=== PATIENT | female | born 1970 | race Hispanic/Latino ===

== ENCOUNTER 2020-09-21 15:58 | Emergency (ER) | payer SELFPAY ==
[2020-09-21 16:36] VITALS: BP 175/89
--- NOTE | 2020-09-21 17:10 | XRay Report ---
CHEST 2 VIEWS INDICATION / CLINICAL INFORMATION: SOB. COMPARISON: None available. FINDINGS: SUPPORT DEVICES: None. HEART / MEDIASTINUM: No significant abnormality. LUNGS / PLEURA: No significant pulmonary or pleural abnormality. No pneumothorax. ADDITIONAL FINDINGS: No significant additional findings. IMPRESSION: 1. No acute findings. Signer Name: Jesse Chan MD Signed: 09/21/2020 5:06 PM Workstation Name: [id number]
[2020-09-21 19:16] LABS: Basophils # (Auto) 0.1 K/mm3 (0.0-0.1); Basophils % (Auto) 0.9 % (0.0-1.8); Eosinophils # (Auto) 0.3 K/mm3 (0.0-0.4); Eosinophils % (Auto) 2.4 % (0.0-4.3); Hematocrit 27.5 % (30.3-42.9); Hemoglobin 8.4 gm/dl (10.1-14.3); Lymphocytes # (Auto) 2.3 K/mm3 (1.2-5.4); Lymphocytes % (Auto) 20.8 % (13.4-35.0); Mean Corpuscular HGB Conc 31 % (30-34); Mean Corpuscular Volume 72 fl (79-97); Monocytes # (Auto) 0.9 K/mm3 (0.0-0.8); Monocytes % (Auto) 8.4 % (0.0-7.3); Platelet Count 472 K/mm3 (140-440); Red Blood Count 3.83 M/mm3 (3.65-5.03); Red Cell Distribution Width 18.5 % (13.2-15.2)
[2020-09-21 19:36] LABS: Alanine Aminotransferase 9 units/L (7-56); Albumin 3.9 g/dL (3.9-5); Blood Urea Nitrogen 9 mg/dL (7-17); Calcium 8.6 mg/dL (8.4-10.2); Hemolysis Index 0
[2020-09-21 19:38] LABS: BUN/Creatinine Ratio 15
--- NOTE | 2020-09-22 10:42 | Electrocardiograph Report ---
[facility] Test Date: 2020-09-21 Test Time: 16:45:13 Pat Name: ALIE NICOLAS Department: Room: Gender: F [employer]ir[employer]: [place] : 1970 Requested By: ABBY CRUMP Order Number: [id number] Reading MD: Jefferson Austin Measurements Intervals [place] Rate: 91 P: 59 RI: 127 QRS: 36 QRSD: 92 T: 55 QT: 347 QTc: 426 Interpretive Statements Sinus rhythm No previous ECG available for comparison Electronically Signed On 09-22-2020 10:42:26 EDT by Jefferson Austin
== END 2020-09-21 19:00 | disposition left against medical advice (07) ==
LOC: ED 15:58
DX: M54.9 Dorsalgia, unspecified (principal); Z53.21 Procedure and treatment not carried out due to patient leaving prior to being seen by health care provider
CPT/HCPCS: 36415; 71046; 80053; 83880; 84484; 85025; 93005